=== PATIENT | female | born 1985 | race Caucasian/White ===

== ENCOUNTER 2018-06-09 04:52 | Emergency (ER) | payer OTHER ==
[~2018-06-09] VITALS: Ht 162.6 cm; Wt 52.3 kg
[2018-06-09 06:16] VITALS: BP 124/89
== END 2018-06-09 06:51 | disposition home or self-care (01) ==
LOC: EMS 04:53
DX: L03.113 Cellulitis of right upper limb (principal); Z88.2 Allergy status to sulfonamides; F41.9 Anxiety disorder, unspecified; F32.9 Major depressive disorder, single episode, unspecified; F11.90 Opioid use, unspecified, uncomplicated; F17.210 Nicotine dependence, cigarettes, uncomplicated